=== PATIENT | male | born 1930 | race Asian ===

== ENCOUNTER 2018-12-24 13:44 | Outpatient (CLI) | payer MEDICARE | END 2018-12-24 23:59 | disposition home or self-care (01) | LOC: CFH 13:44 | PROVIDERS: ATTEND Internal Medicine | DX: I08.3 Combined rheumatic disorders of mitral, aortic and tricuspid valves (principal); I10 Essential (primary) hypertension; K21.9 Gastro-esophageal reflux disease without esophagitis; R10.13 Epigastric pain; Z85.46 Personal history of malignant neoplasm of prostate | CPT/HCPCS: 0399T; 93306 ==